=== PATIENT | female | born 1995 | race Caucasian/White ===

== ENCOUNTER 2017-03-03 16:23 | Emergency (ER) | payer BC ==
--- NOTE | 2017-03-03 16:42 | EDPHY ---
H & P Time Seen by Provider: 03/03/17 16:29 HPI/ROS: CHIEF COMPLAINT: Right pretibial laceration HISTORY OF PRESENT ILLNESS: 21-year-old female complaining of acute right pretibial laceration which occurred when she was hiking, slipped and impacted a rock. Able to bear weight . Occurred earlier today. Tetanus up-to-date. No other injury. PHYSICAL EXAM (Prior to examination, patient consented to physical exam, hands were washed and my usual and customary physical exam procedures followed) 1) GENERAL: Well-developed, well-nourished, alert and oriented. Appears to be in no acute distress. 2) HEAD: Normocephalic 3) HEENT: sclera anicteric 4) LUNGS: Breathing comfortably. 5) SKIN: Right pretibial 3 cm laceration, gaping. 6) MUSCULOSKELETAL: dorsiflexion plantar flexion present without deficits 7) NEUROLOGIC: Full sensation distally Constitutional: Initial Vital Signs Temperature (C) 36.4 C 03/03/17 16:30 Heart Rate 69 03/03/17 16:30 Respiratory Rate 14 03/03/17 16:30 Blood Pressure 112/76 03/03/17 16:30 O2 Sat (%) 95 03/03/17 16:30 O2 Delivery Mode Room Air Allergies/Adverse Reactions: No Known Allergies Allergy (Unverified 03/03/17 16:41) Home Medications: Medication Instructions Recorded NK [No Known Home Meds] 03/03/17 MDM/Departure - MDM Procedures: Procedure: Laceration repair. I explained the indications, risks and benefits for both laceration repair and anesthetic administration. Verbal consent was obtained from the patient . The laceration on the right pretibial region was anesthetized using 0.5% bupivicaine with epinephrine . After anesthetic administered the patient was observed for a period of time and had no apparent adverse effects. The wound was cleaned, prepped, draped in normal sterile fashion and explored to its base. No foreign body seen, no foreign bodies palpated. There were no deep structures involved. The wound was repaired with 6 simple interrupted 4 0 Prolene suture. The wound repair was simple. The procedure was performed by myself. Patient has been informed that scarring will occur, although efforts have been made to minimize this. - Depart Disposition: Home, Routine, Self-Care Clinical Impression: Right pretibial laceration Condition: Good Instructions: Care For Your Stitches (ED), Laceration (ED) Additional Instructions: Return to the ER if you develop redness, swelling, discharge, warmth to the wound, red streaks going up your leg, or any other symptoms that concern you. Referrals: Return, to the ER in 14 days for suture removal [Other] - As per Instructions
[2017-03-03 17:58] VITALS: BP 96/58; PULSE 56; RESP 16; TEMP 97.7; O2SAT 98
== END 2017-03-03 17:56 | disposition home or self-care (01) ==
PROC: 0HQKXZZ Repair Right Lower Leg Skin, External Approach (ICD-10-PCS; principal; 2017-03-03)
DX: S81.811A Laceration without foreign body, right lower leg, initial encounter (principal); W22.8XXA Striking against or struck by other objects, initial encounter; Y93.01 Activity, walking, marching and hiking